=== PATIENT | male | born 1960 | race Caucasian/White ===

== ENCOUNTER 2021-08-18 08:31 | Emergency (ER) | payer MEDICAID, OTHER ==
[~2021-08-18] VITALS: Ht 167.6 cm; Wt 81.8 kg
[~2021-08-18 08:31] MED LIST: LEVE500T20 PO; LISI20TA PO
[2021-08-18] MEDS ORDERED: DOXYCYCLINE HYCLATE 100 MG TABLET PO ONE (08:45)
[2021-08-18] MEDS ORDERED: DOXY-354 PO (08:55)
[2021-08-18 09:10] VITALS: BP 144/93
== END 2021-08-18 09:14 | disposition home or self-care (01) ==
LOC: EMS 08:31
DX: L03.116 Cellulitis of left lower limb (principal); I10 Essential (primary) hypertension
CPT/HCPCS: 99283

== ENCOUNTER 2023-06-10 08:10 | Emergency (ER) | payer OTHER ==
[~2023-06-10] VITALS: Ht 167.6 cm; Wt 79.1 kg
[~2023-06-10 08:10] MED LIST changes: +DOXY-354 PO; -LEVE500T20 PO
[2023-06-10 08:23] VITALS: TEMP 98.1
[2023-06-10 08:47] LABS: BASOPHILS % (AUTO) 1.1 % (0.0-2.0); EOSINOPHILS % (AUTO) 3.3 % (1.0-6.0); HEMATOCRIT 40.1 % (41-53); HEMOGLOBIN 13.6 g/dL (13.5-17.5); LYMPHOCYTES # (AUTO) 2.6 K/uL (1.0-4.8); LYMPHOCYTES % (AUTO) 17.2 % (22.0-44.0); MEAN CORPUSCULAR HEMOGLOBIN 29.1 pg (26.0-34.0); MEAN CORPUSCULAR HGB CONC 33.9 G/dL (31.0-37.0); MEAN CORPUSCULAR VOLUME 86 fL (80-100); MONOCYTES # (AUTO) 1.2 K/uL (0.1-1.0); MONOCYTES % (AUTO) 7.7 % (2.0-9.0); NEUTROPHILS # (AUTO) 10.9 K/uL (1.8-7.7); NEUTROPHILS % (AUTO) 70.7 % (40.0-70.0); PLATELET COUNT (AUTO) 433 K/uL (150-450); RED BLOOD CELL COUNT(AUTO) 4.68 MIL/uL (4.50-5.90); RED CELL DISTRIBUTION WIDTH 14.1 % (11.5-14.5); WHITE BLOOD COUNT (AUTO) 15.4 K/uL (4.5-11.0)
[2023-06-10] MEDS ORDERED: IOHEXOL 350 MG/ML 100 ML VIAL ONE (08:56)
[2023-06-10] MEDS ORDERED: SODIUM CHLORIDE 0.9% 100 ML ONE (08:56)
[2023-06-10 09:01] LABS: ANION GAP 7 mmol/L (8-16); CALCIUM, TOTAL 9.1 mg/dL (8.8-10.5); CARBON DIOXIDE 29 mmol/L (22-29); CHLORIDE 103 mmol/L (98-107); CREATININE 0.83 mg/dL (0.60-1.30); GLOMERULAR FILTR. RATE CALC > 60 mL/min (>60); GLUCOSE,RANDOM 128 mg/dL (70-110); POTASSIUM 4.3 mmol/L (3.5-5.1); SODIUM SERUM 139 mmol/L (136-145); UREA NITROGEN, BLOOD 8 mg/dL (7-18)
[2023-06-10 09:06] LABS: ALANINE AMINOTRANSFERASE 48 U/L (12-78); ALBUMIN 2.9 g/dL (3.4-5.0); ALKALINE PHOSPHATASE 199 U/L (46-116); ASPARTATE AMINOTRANSFERASE 39 U/L (15-37); BILIRUBIN,TOTAL 0.4 mg/dL (0.1-1.0); LIPASE 36 U/L (16-77); TOTAL PROTEIN, SERUM 7.6 g/dL (6.4-8.2)
[2023-06-10 09:37] LABS: APPEARANCE,URINE CLEAR (CLEAR); BILIRUBIN,URINE NEGATIVE (NEGATIVE); COLOR,URINE YELLOW (YELLOW); GLUCOSE, URINE (UA) NEGATIVE (NEGATIVE); KETONES,URINE NEGATIVE (NEGATIVE); LEUKOCYTE ESTERASE ,URINE NEGATIVE (NEGATIVE); NITRATE,URINE NEGATIVE (NEGATIVE); OCCULT BLOOD,URINE LARGE (NEGATIVE); PH,URINE 5.5 (5.0-8.0); PROTEIN,URINE 30-70 mg/dL (NEGATIVE); UROBILINOGEN,URINE <=1.0 mg/dL (<=1.0)
[2023-06-10] MEDS: ACETAMINOPHEN 500 MG TABLET PO ONE (09:44)
[2023-06-10] MEDS: KETOROLAC TROMETHAMINE 30 MG/ML VIAL IVP ONE (09:44)
[2023-06-10 09:46] LABS: BACTERIA,URINE Few /HPF (None Seen); WBC,URINE None Seen /HPF (0-5)
[2023-06-10] MEDS ORDERED: AMOX1TAB16 PO (13:24)
[2023-06-10] MEDS: AMOX TR/POT CLAV 875 MG/125 MG TABLET PO ONE (13:42)
[2023-06-10 13:49] VITALS: BP 124/78; PULSE 77; RESP 18
== END 2023-06-10 13:58 | disposition home or self-care (01) ==
LOC: EMS 08:33
DX: K52.9 Noninfective gastroenteritis and colitis, unspecified (principal); R16.0 Hepatomegaly, not elsewhere classified
CPT/HCPCS: 99285; 74177; 96374; 80053; 81001; 83690; 85025; 36415; J1885; Q9967; J7050

== ENCOUNTER 2025-03-04 14:53 | Inpatient (IN) | payer MEDICARE, OTHER ==
[2025-03-04] VITALS (12 sets, daily range): BP systolic 101–116; BP diastolic 56–69; PULSE 82–90; RESP 16–23; TEMP 98–98.9
[~2025-03-04] VITALS: Ht 167.6 cm; Wt 65.3 kg
[~2025-03-04 14:53] MED LIST changes: +AMOX-457 PO
[2025-03-04] MEDS: PANTOPRAZOLE SODIUM 40 MG/VIAL IVP ONE (15:52)
[2025-03-04] MEDS: PANTOPRAZOLE SODIUM 80 MG in SODIUM CHLORIDE 0.9% 100 ML IV SCH (15:53)
[2025-03-04 16:17] LABS: PLATELET COUNT (AUTO) 88 K/uL (150-450); RED BLOOD CELL COUNT(AUTO) 1.94 MIL/uL (4.50-5.90); RED CELL DISTRIBUTION WIDTH 20.4 % (11.5-14.5); WHITE BLOOD COUNT (AUTO) 10.0 K/uL (4.5-11.0)
[2025-03-04 16:30] LABS: CALCIUM, TOTAL 8.0 mg/dL (8.8-10.5); CREATININE 0.89 mg/dL (0.60-1.30); GLOMERULAR FILTR. RATE CALC > 60 mL/min (>60); GLUCOSE,RANDOM 150 mg/dL (70-110); SODIUM SERUM 143 mmol/L (136-145); UREA NITROGEN, BLOOD 33 mg/dL (7-18)
[2025-03-04 16:36] LABS: ASPARTATE AMINOTRANSFERASE 38.0 U/L (15-37); TOTAL PROTEIN, SERUM 5.6 g/dL (6.4-8.2)
[2025-03-04 16:41] LABS: TROPONIN I-HIGH SENSITIVITY 5 ng/L (<76)
[2025-03-04 16:52] LABS: RBC MORPHOLOGY COMMENT ABNORMAL RBC MORPH
[2025-03-04] MEDS: CefTRIAXone SODIUM 2 GM in DEXTROSE 5%-WATER 50 ML IV ONE (17:24)
[2025-03-04] MEDS: OCTREOTIDE ACETATE 500 MCG in SODIUM CHLORIDE 0.9% 97.5 ML IV SCH (17:26)
[2025-03-04] MEDS: OCTREOTIDE ACETATE 100 MCG/ML VIAL IVP ONE (17:27)
[2025-03-04] MEDS ORDERED: ZOLPIDEM TARTRATE 5 MG TABLET PO PRN (20:15)
[2025-03-04] MEDS ORDERED: MAGNESIUM HYDROXIDE SUSPENSION 30 ML UDCUP PO PRN (20:15)
[2025-03-04] MEDS ORDERED: HYDROCODONE/ACETAMINOPHEN 5-325 MG TABLET PO PRN (20:15)
[2025-03-04] MEDS ORDERED: BISACODYL 10 MG RECTAL RECTAL SUPPOSITORY PR PRN (20:15)
[2025-03-04] MEDS ORDERED: ONDANSETRON HCL 4 MG/2 ML VIAL IVP PRN (20:15)
[2025-03-04] MEDS ORDERED: MORPHINE SULFATE 4 MG/ML SYRINGE IVP PRN (20:15)
[2025-03-04] MEDS ORDERED: ACETAMINOPHEN 325 MG TABLET PO PRN (20:15)
[2025-03-04] MEDS: DOCUSATE SODIUM 100 MG CAPSULE PO SCH (20:47)
[2025-03-05] VITALS (7 sets, daily range): BP systolic 97–147; BP diastolic 51–71; PULSE 68–83; RESP 18; TEMP 97–98.2; O2SAT 97–100
[2025-03-05] MEDS: PANTOPRAZOLE SODIUM 80 MG in SODIUM CHLORIDE 0.9% 100 ML IV SCH (01:42)
[2025-03-05 05:36] LABS: CALCIUM, TOTAL 7.6 mg/dL (8.8-10.5); CREATININE 0.83 mg/dL (0.60-1.30); GLOMERULAR FILTR. RATE CALC > 60 mL/min (>60); GLUCOSE,RANDOM 119 mg/dL (70-110); SODIUM SERUM 143 mmol/L (136-145); UREA NITROGEN, BLOOD 30 mg/dL (7-18)
[2025-03-05 05:40] LABS: PLATELET COUNT (AUTO) 64 K/uL (150-450); RED BLOOD CELL COUNT(AUTO) 2.56 MIL/uL (4.50-5.90); RED CELL DISTRIBUTION WIDTH 18.0 % (11.5-14.5); WHITE BLOOD COUNT (AUTO) 4.1 K/uL (4.5-11.0)
[2025-03-05] MEDS ORDERED: SODIUM CHLORIDE 0.9% 1,000 ML ONE (07:35)
[2025-03-05] MEDS ORDERED: FLUMAZENIL 0.1 MG/ML 5 ML VIAL IVP ONE (07:35)
[2025-03-05] MEDS ORDERED: SODIUM TETRADECYL SULFATE 3% 60 MG/2 ML VIAL IVP ONE (07:36)
[2025-03-05] MEDS ORDERED: EPINEPHrine 1:10,000 [1 MG/10 ML] SYRINGE ONE (07:36)
[2025-03-05] MEDS ORDERED: NALOXONE HCL 0.4 MG/ML VIAL ONE (07:36)
[2025-03-05] MEDS ORDERED: ATROPINE SULFATE 0.1 MG/ML 10 ML SYRINGE IVP ONE (07:36)
[2025-03-05 08:48] LABS: APPEARANCE,URINE CLEAR (CLEAR); GLUCOSE, URINE (UA) NEGATIVE (NEGATIVE); LEUKOCYTE ESTERASE ,URINE NEGATIVE (NEGATIVE); NITRATE,URINE NEGATIVE (NEGATIVE); OCCULT BLOOD,URINE NEGATIVE (NEGATIVE); SPECIFIC GRAVITIY, URINE 1.028 (1.003-1.030)
[2025-03-05] MEDS ORDERED: PANTOPRAZOLE SODIUM 40 MG DR TABLET PO SCH (09:00)
[2025-03-05] MEDS ORDERED: PROPOFOL 1% 20 ML VIAL IVP ONE (12:00)
[2025-03-05] MEDS ORDERED: LIDOCAINE/PF 2% 5 ML SYRINGE IVP ONE (12:00)
[2025-03-05] MEDS: DEXTROSE 5%-0.45% SODIUM CHL 1,000 ML IV ONE (12:15)
[2025-03-05] MEDS: CefTRIAXone 1 GM/DEXTROSE 50 ML IV SCH (15:40)
[2025-03-06 04:00] VITALS: BP 101/61; PULSE 68; RESP 18; TEMP 98.1; O2SAT 100
[2025-03-06 07:07] LABS: PLATELET COUNT (AUTO) 87 K/uL (150-450); RED BLOOD CELL COUNT(AUTO) 2.84 MIL/uL (4.50-5.90); RED CELL DISTRIBUTION WIDTH 21.2 % (11.5-14.5); WHITE BLOOD COUNT (AUTO) 3.1 K/uL (4.5-11.0)
[2025-03-06 07:29] LABS: CALCIUM, TOTAL 7.7 mg/dL (8.8-10.5); CREATININE 0.88 mg/dL (0.60-1.30); GLOMERULAR FILTR. RATE CALC > 60 mL/min (>60); GLUCOSE,RANDOM 102 mg/dL (70-110); SODIUM SERUM 144 mmol/L (136-145); UREA NITROGEN, BLOOD 25 mg/dL (7-18)
[2025-03-06 07:57] LABS: RBC MORPHOLOGY COMMENT ABNORMAL RBC MORPH
[2025-03-06 07:59] VITALS: BP 96/55; PULSE 73; RESP 18; TEMP 98; O2SAT 97
[2025-03-06 11:31] VITALS: BP 110/66; PULSE 75; RESP 17; TEMP 97.5; O2SAT 100
[2025-03-06] MEDS ORDERED: POTASSIUM CHL 10 MEQ/WATER 50 ML IV PRN (13:15)
[2025-03-06] MEDS: POTASSIUM CHLORIDE 20 MEQ ER TABLET PO PRN (14:31)
[2025-03-06 15:55] VITALS: BP 112/66; PULSE 71; RESP 19; TEMP 97.7; O2SAT 98
[2025-03-06] MEDS ORDERED: SODIUM CHLORIDE 0.9% 500 ML IV ONE (16:45)
[2025-03-06 21:00] VITALS: BP 103/65; PULSE 81; RESP 19; TEMP 98.6; O2SAT 100
[2025-03-07] VITALS (7 sets, daily range): BP systolic 108–115; BP diastolic 59–71; PULSE 74–89; RESP 17–19; TEMP 97.7–98.6; O2SAT 97–100
[2025-03-07 06:59] LABS: PLATELET COUNT (AUTO) 89 K/uL (150-450); RED BLOOD CELL COUNT(AUTO) 2.82 MIL/uL (4.50-5.90); RED CELL DISTRIBUTION WIDTH 22.3 % (11.5-14.5); WHITE BLOOD COUNT (AUTO) 2.9 K/uL (4.5-11.0)
[2025-03-07 07:04] LABS: RBC MORPHOLOGY COMMENT ABNORMAL RBC MORPH
[2025-03-07 07:11] LABS: CALCIUM, TOTAL 7.7 mg/dL (8.8-10.5); CREATININE 0.72 mg/dL (0.60-1.30); GLOMERULAR FILTR. RATE CALC > 60 mL/min (>60); GLUCOSE,RANDOM 84 mg/dL (70-110); SODIUM SERUM 142 mmol/L (136-145); UREA NITROGEN, BLOOD 19 mg/dL (7-18)
[2025-03-08 03:43] VITALS: BP 102/61; PULSE 80; RESP 18; TEMP 98.2; O2SAT 100
[2025-03-08 08:00] VITALS: BP 105/68; PULSE 80; RESP 18; TEMP 98.1; O2SAT 100
[2025-03-08 08:34] LABS: PLATELET COUNT (AUTO) 90 K/uL (150-450); RED BLOOD CELL COUNT(AUTO) 2.91 MIL/uL (4.50-5.90); RED CELL DISTRIBUTION WIDTH 22.9 % (11.5-14.5); WHITE BLOOD COUNT (AUTO) 5.0 K/uL (4.5-11.0)
[2025-03-08 08:45] LABS: CALCIUM, TOTAL 7.6 mg/dL (8.8-10.5); CREATININE 0.73 mg/dL (0.60-1.30); GLOMERULAR FILTR. RATE CALC > 60 mL/min (>60); GLUCOSE,RANDOM 85 mg/dL (70-110); SODIUM SERUM 141 mmol/L (136-145); UREA NITROGEN, BLOOD 13 mg/dL (7-18)
[2025-03-08 10:16] LABS: RBC MORPHOLOGY COMMENT ABNORMAL RBC MORPH
[2025-03-08 12:00] VITALS: BP 107/65; PULSE 76; RESP 18; TEMP 98.7; O2SAT 100
[2025-03-08 13:50] VITALS: BP 110/62
[2025-03-08] MEDS: PROPRANOLOL HCL 10 MG TABLET PO SCH (13:58)
[2025-03-08] MEDS: OCTREOTIDE ACETATE 500 MCG in SODIUM CHLORIDE 0.9% 97.5 ML IV SCH (14:13)
[2025-03-08 16:30] VITALS: BP 100/75; PULSE 70; RESP 18; TEMP 98; O2SAT 100
[2025-03-09 04:00] VITALS: BP 103/61; PULSE 71; RESP 18; TEMP 98.4; O2SAT 98
[2025-03-09 08:00] VITALS: BP 111/68; PULSE 72; RESP 16; TEMP 98; O2SAT 100
[2025-03-09 08:24] LABS: CALCIUM, TOTAL 7.5 mg/dL (8.8-10.5); CREATININE 0.76 mg/dL (0.60-1.30); GLOMERULAR FILTR. RATE CALC > 60 mL/min (>60); GLUCOSE,RANDOM 118 mg/dL (70-110); SODIUM SERUM 140 mmol/L (136-145); UREA NITROGEN, BLOOD 11 mg/dL (7-18)
[2025-03-09 08:28] LABS: PLATELET COUNT (AUTO) 101 K/uL (150-450); RED BLOOD CELL COUNT(AUTO) 2.96 MIL/uL (4.50-5.90); RED CELL DISTRIBUTION WIDTH 21.9 % (11.5-14.5); WHITE BLOOD COUNT (AUTO) 8.8 K/uL (4.5-11.0)
[2025-03-09] MEDS: PANTOPRAZOLE SODIUM 40 MG DR TABLET PO SCH (09:00)
[2025-03-09] MEDS ORDERED: PANT-31 PO (10:56)
== END 2025-03-09 14:15 | disposition home or self-care (01) | DRG 369 ==
LOC: EMS 14:53 → EDH 18:55 → 5S 03-05 → 6S 03-08 18:35
PROVIDERS: ADMIT Internal Medicine; ATTEND Internal Medicine
PROC: 30233N1 Transfusion of Nonautologous Red Blood Cells into Peripheral Vein, Percutaneous Approach (ICD-10-PCS; 2025-03-04)
PROC: 0DJ08ZZ Inspection of Upper Intestinal Tract, Via Natural or Artificial Opening Endoscopic (ICD-10-PCS; principal; 2025-03-05 08:00)
DX: I85.01 Esophageal varices with bleeding (principal); C18.9 Malignant neoplasm of colon, unspecified; C78.7 Secondary malignant neoplasm of liver and intrahepatic bile duct; E44.0 Moderate protein-calorie malnutrition; K76.6 Portal hypertension; D63.8 Anemia in other chronic diseases classified elsewhere; R56.9 Unspecified convulsions; K25.4 Chronic or unspecified gastric ulcer with hemorrhage; K92.1 Melena; I10 Essential (primary) hypertension; D62 Acute posthemorrhagic anemia; E87.6 Hypokalemia; R73.9 Hyperglycemia, unspecified; Z68.23 Body mass index [BMI] 23.0-23.9, adult
CPT/HCPCS: 71045; 80048; 80076; 81003; 82271; 83690; 83880; 84132; 84484; 85014; 85018; 85025; 85610; 85730; 86850; 86900; 86901; 86923; 93005; 96365; 96366; 96367; 96368; 96375; 99285; G0378; J0169; J0461; J0696; J1200; J2312; J2354; J2470; J2704; J3490; J7030; J7040; J7050; J7060; P9016; 36415-L1; 36415-TC